=== PATIENT | male | born 1965 | race Two or more races ===

== ENCOUNTER 2016-09-20 22:23 | Emergency (ER) | payer MEDICAID, OTHER ==
[~2016-09-20] VITALS: Ht 170.2 cm; Wt 97.5 kg
[2016-09-21 01:07] VITALS: BP 150/96
== END 2016-09-21 02:02 | disposition home or self-care (01) ==
LOC: ER 22:36
DX: T63.301A Toxic effect of unspecified spider venom, accidental (unintentional), initial encounter (principal); E11.9 Type 2 diabetes mellitus without complications; E78.5 Hyperlipidemia, unspecified; I10 Essential (primary) hypertension; W57.XXXA Bitten or stung by nonvenomous insect and other nonvenomous arthropods, initial encounter; Y93.89 Activity, other specified; Y99.8 Other external cause status; Y92.89 Other specified places as the place of occurrence of the external cause